=== PATIENT | male | born 1975 | race Caucasian/White ===

== ENCOUNTER 2021-06-23 03:11 | Emergency (ER) | payer OTHER ==
[2021-06-23 03:48] LABS: BASOPHIL 0.3 % (0-2); EOSINOPHIL 1.2 % (0-5); HGB 13.1 g/dl (13.2-18.0); LYMPHOCYTE 13.3 % (15-48); MCH 30.4 pg (25.0-31.0); MCHC 34.5 g/dL (32.0-36.0); MCV 88.2 fL (78.0-100.0); MONOCYTE 6.2 % (0-12); MPV 10.3 fL (6.0-9.5); NEUTROPHIL 78.5 % (41-80); NRBC 0; PLT 233 K/uL (150-400); RBC 4.31 M/uL (4.70-6.00); RDW 12.3 % (11.5-14.0); WBC 10.4 K/uL (4.0-10.5)
[2021-06-23 03:52] LABS: INR 1.21 (0.9-1.2); PROTHROMBIN TIME 14.7 SECONDS (11.8-13.4)
[2021-06-23 03:53] LABS: PTT 33.3 SECONDS (24.4-34.7)
[2021-06-23 04:04] LABS: ALBUMIN 3.3 g/dL (3.4-5.0); BILIRUBIN - TOTAL 1.1 mg/dL (0.2-1.0); GLOBULIN (CALCULATION) 4.1 g/dL; POTASSIUM 3.5 mmol/L (3.5-5.1); TOTAL PROTEIN 7.4 g/dL (6.4-8.2)
[2021-06-23 04:29] LABS: CORONAVIRUS 2019 SARS-COV-2 NEGATIVE (NEGATIVE); INFLUENZA A NAA NEGATIVE (NEGATIVE)
[2021-06-23 04:51] LABS: C-REACTIVE PROTEIN 6.6 mg/dL (<=0.90)
[2021-06-23 08:21] LABS: RBC (FLUID) 3000 RBC/uL
[2021-06-23 09:04] LABS: CLARITY (FLUID) CLOUDY; COLOR (FLUID) YELLOW
[2021-06-23 09:05] LABS: WBC (FLUID) 38800 WBC/uL
[2021-06-23] MEDS ORDERED: PREDNISONE 20MG20 MG PO (11:48)
[2021-06-23] MEDS ORDERED: NORCO 5-325 TA1 EACH PO (11:48)
[2021-06-23] MEDS ORDERED: XARELTO15 MG PO (11:54)
[2021-06-23] MEDS ORDERED: XARELTO20 MG PO (13:02)
== END 2021-06-23 12:20 | disposition home or self-care (01) ==
LOC: FER 03:11
PROVIDERS: Emergency Medicine
DX: R07.9 Chest pain, unspecified (principal); R51.9 Headache, unspecified; M25.561 Pain in right knee; I50.9 Heart failure, unspecified; Z86.718 Personal history of other venous thrombosis and embolism; Z88.8 Allergy status to other drugs, medicaments and biological substances; Z88.1 Allergy status to other antibiotic agents; Z79.01 Long term (current) use of anticoagulants; Z20.822 Contact with and (suspected) exposure to COVID-19; Z28.310 Unvaccinated for COVID-19
CPT/HCPCS: 36415; 70450; 71045; 71275; 73560; 80053; 82945; 83880; 84145; 84484; 84550; 85025; 85379; 85610; 85730; 86140; 86593; 87070; 87205; 89051; 89060; 93005; J1170; J1885; J2001; Q9967; U0002

== ENCOUNTER 2021-07-29 23:07 | Emergency (ER) | payer OTHER ==
[~2021-07-29 23:07] MED LIST: NORCO 5-325 TA1 EACH PO; PREDNISONE 20MG20 MG PO; XARELTO15 MG PO; XARELTO20 MG PO
[2021-07-30 01:09] LABS: BASOPHIL 0.3 % (0-2); HCT 36.9 % (42.0-52.0); HGB 12.4 g/dl (13.2-18.0); LYMPHOCYTE 8.3 % (15-48); MCH 30.4 pg (25.0-31.0); MCHC 33.6 g/dL (32.0-36.0); MCV 90.4 fL (78.0-100.0); MONOCYTE 8.2 % (0-12); MPV 10.4 fL (6.0-9.5); NEUTROPHIL 81.5 % (41-80); NRBC 0; PLT 190 K/uL (150-400); RBC 4.08 M/uL (4.70-6.00); RDW 13.7 % (11.5-14.0); WBC 8.9 K/uL (4.0-10.5)
[2021-07-30 01:35] LABS: ALBUMIN 3.2 g/dL (3.4-5.0); BILIRUBIN - TOTAL 0.6 mg/dL (0.2-1.0); BUN/CREAT RATIO (CALC) 9.6 RATIO; CREATININE 1.14 mg/dL (0.67-1.17); GLOBULIN (CALCULATION) 3.6 g/dL; POTASSIUM 3.5 mmol/L (3.5-5.1); TOTAL PROTEIN 6.8 g/dL (6.4-8.2)
[2021-07-30 01:36] LABS: LACTIC ACID 1.6 mmol/L (0.4-1.9)
[2021-07-30 01:40] LABS: INFLUENZA A NAA NEGATIVE (NEGATIVE)
[2021-07-30 01:42] LABS: CORONAVIRUS 2019 SARS-COV-2 POSITIVE (NEGATIVE)
[2021-07-30] MEDS ORDERED: PAXLOVID CO-PA1 EAC1 PO (04:52)
[2021-07-30] MEDS ORDERED: ONDANSETRON ODT4 MG PO (04:52)
[2021-07-30] MEDS ORDERED: NORCO 5-325 TA1 EACH PO (04:52)
== END 2021-07-30 05:20 | disposition home or self-care (01) ==
LOC: FER 23:07
PROVIDERS: Emergency Medicine
DX: U07.1 COVID-19 (principal); M79.672 Pain in left foot; I10 Essential (primary) hypertension; F17.200 Nicotine dependence, unspecified, uncomplicated; Z88.8 Allergy status to other drugs, medicaments and biological substances
CPT/HCPCS: 36415; 71275; 73630; 80053; 83605; 84145; 84484; 85025; 87040; 93005; 93970; J1885; J2543; J7030; Q9967; U0002

== ENCOUNTER 2021-10-13 16:28 | Emergency (ER) | payer OTHER ==
[~2021-10-13] VITALS: Ht 188 cm; Wt 142.9 kg
[~2021-10-13 16:28] MED LIST changes: +ONDANSETRON ODT4 MG PO; +PAXLOVID CO-PA1 EAC1 PO
[2021-10-13 16:54] LABS: BASOPHIL 0.3 % (0-2); EOSINOPHIL 4.2 % (0-5); HCT 42.1 % (42.0-52.0); HGB 14.5 g/dl (13.2-18.0); LYMPHOCYTE 13.4 % (15-48); MCH 30.9 pg (25.0-31.0); MCHC 34.4 g/dL (32.0-36.0); MCV 89.8 fL (78.0-100.0); MONOCYTE 5.8 % (0-12); MPV 10.2 fL (6.0-9.5); NRBC 0; PLT 185 K/uL (150-400); RBC 4.69 M/uL (4.70-6.00); RDW 13.3 % (11.5-14.0); WBC 7.4 K/uL (4.0-10.5)
[2021-10-13 17:09] LABS: INR 2.54 (0.9-1.2); PROTHROMBIN TIME 26.4 SECONDS (11.9-13.9); PTT 45.3 SECONDS (24.9-34.6)
[2021-10-13 17:20] LABS: ALBUMIN 3.6 g/dL (3.4-5.0); BILIRUBIN - TOTAL 1.2 mg/dL (0.2-1.0); BUN/CREAT RATIO (CALC) 8.8 RATIO; CREATININE 1.02 mg/dL (0.67-1.17); GLOBULIN (CALCULATION) 3.8 g/dL; POTASSIUM 3.5 mmol/L (3.5-5.1); TOTAL PROTEIN 7.4 g/dL (6.4-8.2)
[2021-10-13 17:38] LABS: CORONAVIRUS 2019 SARS-COV-2 NEGATIVE (NEGATIVE); INFLUENZA A NAA NEGATIVE (NEGATIVE)
== END 2021-10-13 23:20 | disposition other institution (70) ==
LOC: FER 16:28
PROVIDERS: Emergency Medicine
DX: I20.0 Unstable angina (principal); J44.1 Chronic obstructive pulmonary disease with (acute) exacerbation; I11.0 Hypertensive heart disease with heart failure; I50.9 Heart failure, unspecified; F17.220 Nicotine dependence, chewing tobacco, uncomplicated; Z86.718 Personal history of other venous thrombosis and embolism; Z79.01 Long term (current) use of anticoagulants; Z88.1 Allergy status to other antibiotic agents; Z88.8 Allergy status to other drugs, medicaments and biological substances; Z79.899 Other long term (current) drug therapy; Z20.822 Contact with and (suspected) exposure to COVID-19
CPT/HCPCS: 36415; 71045; 71275; 80053; 83880; 84484; 85025; 85610; 85730; 93005; 94640; 94664; 94762; J1170; J2270; J2930; Q9967; U0002

== ENCOUNTER 2021-10-23 09:56 | Emergency (ER) | payer OTHER ==
[2021-10-23] MEDS ORDERED: NORCO 5-325 TA1 EACH PO ×2 (11:04→11:20)
== END 2021-10-23 11:30 | disposition home or self-care (01) ==
LOC: FER 09:56
DX: S63.284A Dislocation of proximal interphalangeal joint of right ring finger, initial encounter (principal); M79.644 Pain in right finger(s); I10 Essential (primary) hypertension; Z28.310 Unvaccinated for COVID-19; Z87.891 Personal history of nicotine dependence; W23.0XXA Caught, crushed, jammed, or pinched between moving objects, initial encounter; Y93.89 Activity, other specified; Y92.89 Other specified places as the place of occurrence of the external cause; Z88.8 Allergy status to other drugs, medicaments and biological substances
CPT/HCPCS: 73130; 96372; J1170